=== PATIENT | male | born 1975 | race Asian ===

== ENCOUNTER 2018-11-27 11:04 | Observation (INO) | payer OTHER ==
[2018-11-27 11:48] LABS: PLATELET COUNT 288 10^3/uL (150-400)
--- NOTE | 2018-11-27 12:02 | EDPHY ---
H & P Stated Complaint: black stools x 3 days/syncope and palpitations x 2 last night Time Seen by Provider: 11/27/18 11:58 HPI/ROS: CHIEF COMPLAINT: Black tarry stool, syncope HISTORY OF PRESENT ILLNESS: Patient is a 43-year-old man with no significant history who comes to the emergency department complaining of 3 days black tarry stool and a syncopal episode this morning. He states that when he got to the bathroom 4:00 a.m. He fainted in his found him on the floor. She then helped him up to go back to bed any fainted again. He denies chest pain or palpitations. He denies recent fevers or illness. No nausea vomiting. He does occasionally get heartburn. Severity: Moderate Modifying factors: None REVIEW OF SYSTEMS: Constitutional: denies: chills, fever, recent illness, recent injury EENTM: denies: blurred vision, double vision, nose congestion Respiratory: denies: cough, shortness of breath Cardiac: See HPI denies: chest pain, irregular heart rate, Gastrointestinal/Abdominal: denies: abdominal pain, diarrhea, nausea, vomiting, blood streaked stools Genitourinary: denies: dysuria, frequency, hematuria, pain Musculoskeletal: denies: joint pain, muscle pain Skin: denies: lesions, rash, jaundice, bruising Neurological: denies: headache, numbness, paresthesia, tingling, dizziness, weakness Hematologic/Lymphatic: denies: blood clots, easy bleeding, easy bruising Immunologic/allergic: denies: HIV/AIDS, transplant 10 systems reviewed and negative except as noted EXAM: GENERAL: Well-appearing, well-nourished and in no acute distress. HEAD: Atraumatic, normocephalic. EYES: Pupils equal round and reactive to light, extraocular movements intact, sclera anicteric, conjunctiva are normal. ENT: TMs normal, nares patent, oropharynx clear without exudates. Moist mucous membranes. NECK: Normal range of motion, supple without lymphadenopathy or JVD. LUNGS: Breath sounds clear to auscultation bilaterally and equal. No wheezes rales or rhonchi. HEART: Regular rate and rhythm without murmurs, rubs or gallops. ABDOMEN: Soft, nontender, normoactive bowel sounds. No guarding, no rebound. No masses appreciated. : Rectal scope performed. Black tarry stool sent to the lab. No visible hemorrhoid or fissure. BACK: No CVA tenderness, no spinal tenderness, step-offs or deformities EXTREMITIES: Normal range of motion, no pitting or edema. No clubbing or cyanosis. NEUROLOGICAL: Cranial nerves II through XII grossly intact. Normal speech, normal gait. 5/5 strength, normal movement in all extremities, normal sensation , normal reflexes PSYCH: Normal mood, normal affect. SKIN: Warm, dry, normal turgor, no visible rashes or lesions. Source: Patient Exam Limitations: No limitations - Personal History Current Tetanus Diphtheria and Acellular Pertussis (TDAP): Unsure - Medical/Surgical History Hx Asthma: No Hx Chronic Respiratory Disease: No Hx Diabetes: No Hx Cardiac Disease: No Hx Renal Disease: No Hx Cirrhosis: No Hx Alcoholism: No Hx HIV/AIDS: No Hx Splenectomy or Spleen Trauma: No Other PMH: denies - Family History Significant Family History: No pertinent family hx - Social History Smoking Status: Never smoked Alcohol Use: None Drug Use: None Constitutional: Initial Vital Signs Temperature (C) 36.5 C 11/27/18 11:12 Heart Rate 68 11/27/18 11:12 Respiratory Rate 17 11/27/18 11:12 Blood Pressure 126/68 H 11/27/18 11:12 O2 Sat (%) 98 11/27/18 11:12 O2 Delivery Mode Room Air Allergies/Adverse Reactions: No Known Allergies Allergy (Unverified 11/27/18 11:11) Home Medications: Medication Instructions Recorded Vitamin And Supplements 11/27/18 Medical Decision Making - Diagnostics EKG Interpretation: An EKG obtained and was read and documented in trace view. Please see trace view for full reading and report. Sinus rhythm, no acute ischemic changes ED Course/Re-evaluation: Patient has stable vital signs here in a normal EKG but has been syncopal with black tarry stool. Will hydrate and likely his hematocrit Will dilute. Will start on Protonix and admit. I have paged the hospitalist as well as gastroenterology. 12:[address] Nur who will plan to scope tomorrow. Differential Diagnosis: Partial list of the Differential diagnosis considered include but were not limited to; upper GI bleed, syncope, dehydration and although unlikely based on the history and physical exam, I also considered infection, head injury. - Data Points Laboratory Results: Laboratory Results 11/27/18 11:28 11/27/18 11:28 11/27/18 11/27/18 11/27/18 11:35 11:28 11:28 WBC RBC Hgb POC Hgb 12.9 gm/dL L gm/dL (13.7-17.5) Hct POC Hct 38 % L % (40-51) MCV MCH MCHC RDW Plt Count MPV Neut % (Auto) Lymph % (Auto) Richardson % (Auto) Eos % (Auto) Baso % (Auto) Nucleat RBC Rel Count Absolute Neuts (auto) Absolute Lymphs (auto) Absolute Monos (auto) Absolute Eos (auto) Absolute Basos (auto) Absolute Nucleated RBC Immature Gran % Immature Gran # POC Sodium 138 mEq/L mEq/L (135-145) Sodium 136 mEq/L mEq/L (135-145) POC Potassium 3.8 mEq/L mEq/L (3.3-5.0) Potassium 4.0 mEq/L mEq/L (3.5-5.2) POC Chloride 103 mEq/L mEq/L (97-110) Chloride 103 mEq/L mEq/L (97-110) Carbon Dioxide 23 mEq/l mEq/l (22-31) POC Total CO2 24 mEq/L mEq/L (22-31) Anion Gap 10 mEq/L mEq/L (6-14) POC BUN 27 mg/dL H mg/dL (7-23) BUN 29 mg/dL H mg/dL (7-23) Creatinine 0.8 mg/dL mg/dL (0.7-1.3) POC Creatinine 0.8 mg/dL mg/dL (0.7-1.3) Estimated GFR > 60 Glucose 103 mg/dL H mg/dL (70-100) POC Glucose 106 mg/dL H mg/dL (70-100) Calcium 9.1 mg/dL mg/dL (8.5-10.4) Patient ABO/Rh Pending Antibody Screen Pending 11/27/18 11:28 WBC 9.36 10^3/uL 10^3/uL (3.80-9.50) RBC 4.10 10^6/uL L 10^6/uL (4.40-6.38) Hgb 12.3 g/dL L g/dL (13.7-17.5) POC Hgb Hct 37.7 % L % (40.0-51.0) POC Hct MCV 92.0 fL fL (81.5-99.8) MCH 30.0 pg pg (27.9-34.1) MCHC 32.6 g/dL g/dL (32.4-36.7) RDW 12.7 % % (11.5-15.2) Plt Count 288 10^3/uL 10^3/uL (150-400) MPV 10.8 fL fL (8.7-11.7) Neut % (Auto) 66.8 % % (39.3-74.2) Lymph % (Auto) 28.7 % % (15.0-45.0) Richardson % (Auto) 3.4 % L % (4.5-13.0) Eos % (Auto) 0.4 % L % (0.6-7.6) Baso % (Auto) 0.3 % % (0.3-1.7) Nucleat RBC Rel Count 0.0 % % (0.0-0.2) Absolute Neuts (auto) 6.24 10^3/uL 10^3/uL (1.70-6.50) Absolute Lymphs (auto) 2.69 10^3/uL 10^3/uL (1.00-3.00) Absolute Monos (auto) 0.32 10^3/uL 10^3/uL (0.30-0.80) Absolute Eos (auto) 0.04 10^3/uL 10^3/uL (0.03-0.40) Absolute Basos (auto) 0.03 10^3/uL 10^3/uL (0.02-0.10) Absolute Nucleated RBC 0.00 10^3/uL 10^3/uL (0-0.01) Immature Gran % 0.4 % % (0.0-1.1) Immature Gran # 0.04 10^3/uL 10^3/uL (0.00-0.10) POC Sodium Sodium POC Potassium Potassium POC Chloride Chloride Carbon Dioxide POC Total CO2 Anion Gap POC BUN BUN Creatinine POC Creatinine Estimated GFR Glucose POC Glucose Calcium Patient ABO/Rh Antibody Screen Point of Care Test Results: Chemistry 11/27/18 11:35 POC Sodium 138 mEq/L mEq/L (135-145) POC Potassium 3.8 mEq/L mEq/L (3.3-5.0) POC Chloride 103 mEq/L mEq/L (97-110) POC Total CO2 24 mEq/L mEq/L (22-31) POC BUN 27 mg/dL H mg/dL (7-23) POC Creatinine 0.8 mg/dL mg/dL (0.7-1.3) POC Glucose 106 mg/dL H mg/dL (70-100) ISTAT H&H 11/27/18 11:35 POC Hgb 12.9 gm/dL L gm/dL (13.7-17.5) POC Hct 38 % L % (40-51) Departure - Dep[facility]ure [facility] Clinical Impression: Upper GI bleeding Condition: Fair Referrals: Brianne Bernabe MD [Primary Care Provider] - As per Instructions
[2018-11-27] MEDS ORDERED: NS 1,000 ML IV ONE (12:20)
[2018-11-27] MEDS ORDERED: PANTOPRAZOLE SODIUM 40 MG VIAL ONE (12:30)
[2018-11-27] MEDS ORDERED: ACETAMINOPHEN 325 MG TAB PO PRN (12:34)
[2018-11-27] MEDS ORDERED: ONDANSETRON 4 MG/2 ML VIAL IVP PRN ×2 (12:34→17:16)
[2018-11-27] MEDS ORDERED: ONDANSETRON DISINTEGRATING 4 MG TAB PO PRN (12:34)
[2018-11-27] MEDS: PANTOPRAZOLE SODIUM 40 MG VIAL IVP SCH (12:34)
[2018-11-27 13:03] LABS: INR 0.96 (0.83-1.16); PROTIME(PATIENT) 12.4 SEC (12.0-15.0)
--- NOTE | 2018-11-27 13:33 | SOAPPROG ---
SOAP Progress Note Assessment/Plan: Assessment:Plan: see full dictated consult 43 y/o mle from [place] with melena x 2 days, post hemorrhagic anemia EGD later today Chepe Welch MD 11/27/18 13:32 Objective: Vital Signs Temp Pulse Resp BP Pulse Ox 36.6 C 58 L 16 120/69 97 11/27/18 12:56 11/27/18 13:05 11/27/18 12:56 11/27/18 13:05 11/27/18 13:05 PT 12.4 SEC (12.0-15.0) 11/27/18 11:28 INR 0.96 (0.83-1.16) 11/27/18 11:28 ICD10 Worksheet Patient Problems: Problems Problem Status Onset Upper GI bleeding Acute
--- NOTE | 2018-11-27 14:19 | GCON ---
[f rep st] CONSULTATION DATE OF CONSULTATION: 11/27/2018 REQUESTING PHYSICIAN: Dr. Neri INDICATION FOR CONSULTATION: Upper GI bleed, melena, posthemorrhagic anemia. I have been asked by Dr. Neri to see the patient in consultation for chief complaint of upper GI bleed. He is a very pleasant 43-year-old male who was born in [place], who has no significant past medical history. He was in his usual state of health on Tuesday when he went for a run of 3 miles or more without any significant problems. On Tuesday, he had 1 melenic stool and then this a.m. he had 2-3 more melenic stools and he felt dizzy and had a fainting episode. Because of this, he was brought to the hospital for evaluation. He was noted to have melena and elevated BUN/creatinine ratio and decreased H and H consistent with an upper GI bleed. He has been hemodynamically stable since he is in the hospital. He has received over a L of fluid IV. He is currently sitting in his bed comfortably without any complaints. He says over the last few weeks he has had a few episodes of intermittent nausea and epigastric discomfort. A number of weeks ago he did get up in the morning and had to vomit twice, bilious material without any blood. He has not had any melena prior to today. There is no family history of peptic ulcer disease, but there is a history concerning for possible genetic syndrome with his mother having uterine cancer at a young age, colon polyps and his maternal aunt having breast cancer. The patient did not take any aspirin or nonsteroidal anti-inflammatory drugs. He only takes some supplements and vitamins [id number]. He has not had any hematemesis. He does not describe any dysphagia, odynophagia, or early satiety. Up until today, his appetite was good and there has been no weight loss. He is now admitted for a presumed upper GI bleed. I am called to help evaluate and treat in that regard. PAST MEDICAL HISTORY: None. PAST SURGICAL HISTORY: None. MEDICATIONS: At home, only vitamins and supplements. ALLERGIES: No known drug allergies. SOCIAL HISTORY: Does not smoke. He drinks alcohol infrequently every couple weeks with friends. He may have a beer or some wine. He was born in [facility]. FAMILY HISTORY: Mother with uterine cancer at age under 50. Mother with colon polyps. Aunt with breast cancer. REVIEW OF SYSTEMS: A complete review of systems was performed and negative other than noted in the HPI. Other pertinent negatives include no chest pain, shortness of breath, palpitations, diaphoresis. PHYSICAL EXAM: GENERAL: Well-developed, well-nourished man sitting in his bed. No acute distress. VITAL SIGNS: Blood pressure 132/72, pulse 62, respirations 16. He is 98% on room air. Temperature 36.6. HEENT: Eyes anicteric. CELESTINO, EOMI. Mouth: No lesions. Moist membranes. NECK: Supple. Full range of motion. No JVD. BACK: No spine tenderness. No CVA tenderness. LUNGS: Clear. CARDIAC: S1, S2. Regular rate and rhythm. No murmurs, rubs , gallops appreciated. ABDOMEN: Bowel sounds are normal pitch. Soft and nontender. No hepatosplenomegaly. EXTREMITIES: No cyanosis, clubbing, or edema. NEUROLOGIC: Cranial nerves intact. Nonfocal. Alert and oriented x3. SKIN: No stigmata of advanced liver disease. No rashes. LABORATORY DATA: Sodium 138, potassium 3.8, chloride 103, bicarb 24, BUN 29, creatinine 0.8, glucose 106, calcium 9.1. WBC 9.36, hemoglobin 12.3, hematocrit 37.7, platelet count 288. A subsequent hemoglobin done just a couple minutes later showed 12.9. ProTime 12.4, INR 0.96, PTT 26.5. ASSESSMENT: 1. Melena. 2. Posthemorrhagic anemia. 3. Near syncope related to upper gastrointestinal bleed. 4. Family history concerning for genetic syndrome such as HNPCC. RECOMMENDATIONS: 1. Continue Protonix IV q.6. 2. Serial H and H. 3. Plan for EGD later today with anesthesia. 4. Will need to follow up H pylori status. If negative on biopsy, will recommend another test to evaluate as he was born in [place]. I considered the H pylori acquired in [place] as a carcinogen and would like to have full eradication documented. 5. Recommend he follow up with our [facility] as an outpatient given his family history to make sure there are no genetic syndromes that we need to worry about. 6. Further recommendations to follow results of EGD and clinical course. Thank you for allowing me to participate in this patient's healthcare. Do not hesitate to call me with any questions. Sincerely, /[id number]/MODL MTDD
[2018-11-27] MEDS ORDERED: LR 1,000 ML IV ONE (14:44)
--- NOTE | 2018-11-27 15:16 | PDGENHP ---
History and Physical - Chief Complaint Black stool, syncope - History of Present Illness Dion Chandra is a 43 yo M with no significant PMHx who presents to [facility] black stools and syncope. His is at the bedside who has helped with hx taking. They report that patient started having black bowel movement yesterday morning. He denies any hx of melena. He reports no associated abdominal or epigastric pain but does endorse nausea. He states that a few weeks ago he had a fairly severe episode of heartburn with nausea and vomiting. He denies any hemoptysis at that time. Heartburn resolved at that time and has not recurred since. Melena recurred this morning with two episodes. He denies hematochezia. He was going to bathroom at 4AM and reports feeling lightheaded and fainted. His found him on the floor, helped him back up and reports that he fainted again. He denies any preceding symptoms other than LH including chest pain, palpitations, SOB, vision changes. He denies any significant NSAID use. History Information - Allergies/Home Medication List Allergies/Adverse Reactions: No Known Allergies Allergy (Verified 11/27/18 14:17) Home Medications: Herbals/Supplements -Info Only 1 ea PO DAILY 11/27/18 [Last Taken Unknown] Vitamin B Complex [Vitamin B Complex (OTC)] 1 each PO DAILY 11/27/18 [Last Taken Unknown] I have personally reviewed and updated: family history, medical history, social history, surgical history - Past Medical History no pertinent PMH - Surgical History Reports: no pertinent surgical hx - Family History Positive for: non-pertinent - Social History Smoking Status: Never smoked Alcohol Use: None Drug Use: None Review of Systems Review of Systems: ROS: 10pt was reviewed & negative except for what was stated in HPI & below Physical Exam Physical Exam: Temp Pulse Resp BP Pulse Ox 36.8 C 51 L 16 122/73 H 98 11/27/18 14:29 11/27/18 14:29 11/27/18 14:29 11/27/18 14:29 11/27/18 14:29 Constitutional: no apparent distress Eyes: PERRL Ears, Nose, Mouth, Throat: moist mucous membranes Cardiovascular: regular rate and rhythym Respiratory: no respiratory distress Gastrointestinal: soft, non-tender abdomen Skin: warm Musculoskeletal: full muscle strength Neurologic: AAOx3 Psychiatric: interacting appropriately Lymph, Heme, Immunologic: No ecchymoses Lab Data & Imaging Review 11/27/18 11:28 11/27/18 11:28 WBC 9.36 10^3/uL (3.80-9.50) 11/27/18 11:28 RBC 4.10 10^6/uL (4.40-6.38) L 11/27/18 11:28 Hgb 12.3 g/dL (13.7-17.5) L 11/27/18 11:28 POC Hgb 12.9 gm/dL (13.7-17.5) L 11/27/18 11:35 Hct 37.7 % (40.0-51.0) L 11/27/18 11:28 POC Hct 38 % (40-51) L 11/27/18 11:35 MCV 92.0 fL (81.5-99.8) 11/27/18 11:28 MCH 30.0 pg (27.9-34.1) 11/27/18 11:28 MCHC 32.6 g/dL (32.4-36.7) 11/27/18 11:28 RDW 12.7 % (11.5-15.2) 11/27/18 11:28 Plt Count 288 10^3/uL (150-400) 11/27/18 11:28 MPV 10.8 fL (8.7-11.7) 11/27/18 11:28 Neut % (Auto) 66.8 % (39.3-74.2) 11/27/18 11:28 Lymph % (Auto) 28.7 % (15.0-45.0) 11/27/18 11:28 [place] % (Auto) 3.4 % (4.5-13.0) L 11/27/18 11:28 Eos % (Auto) 0.4 % (0.6-7.6) L 11/27/18 11:28 Baso % (Auto) 0.3 % (0.3-1.7) 11/27/18 11:28 Nucleat RBC Rel Count 0.0 % (0.0-0.2) 11/27/18 11:28 Absolute Neuts (auto) 6.24 10^3/uL (1.70-6.50) 11/27/18 11:28 Absolute Lymphs (auto) 2.69 10^3/uL (1.00-3.00) 11/27/18 11:28 Absolute Monos (auto) 0.32 10^3/uL (0.30-0.80) 11/27/18 11:28 Absolute Eos (auto) 0.04 10^3/uL (0.03-0.40) 11/27/18 11:28 Absolute Basos (auto) 0.03 10^3/uL (0.02-0.10) 11/27/18 11:28 Absolute Nucleated RBC 0.00 10^3/uL (0-0.01) 11/27/18 11:28 Immature Gran % 0.4 % (0.0-1.1) 11/27/18 11:28 Immature Gran # 0.04 10^3/uL (0.00-0.10) 11/27/18 11:28 PT 12.4 SEC (12.0-15.0) 11/27/18 11:28 INR 0.96 (0.83-1.16) 11/27/18 11:28 APTT 26.5 SEC (23.0-38.0) 11/27/18 11:28 POC Sodium 138 mEq/L (135-145) 11/27/18 11:35 Sodium 136 mEq/L (135-145) 11/27/18 11:28 POC Potassium 3.8 mEq/L (3.3-5.0) 11/27/18 11:35 Potassium 4.0 mEq/L (3.5-5.2) 11/27/18 11:28 POC Chloride 103 mEq/L (97-110) 11/27/18 11:35 Chloride 103 mEq/L (97-110) 11/27/18 11:28 Carbon Dioxide 23 mEq/l (22-31) 11/27/18 11:28 POC Total CO2 24 mEq/L (22-31) 11/27/18 11:35 Anion Gap 10 mEq/L (6-14) 11/27/18 11:28 POC BUN 27 mg/dL (7-23) H 11/27/18 11:35 BUN 29 mg/dL (7-23) H 11/27/18 11:28 Creatinine 0.8 mg/dL (0.7-1.3) 11/27/18 11:28 POC Creatinine 0.8 mg/dL (0.7-1.3) 11/27/18 11:35 Estimated GFR > 60 11/27/18 11:28 Glucose 103 mg/dL (70-100) H 11/27/18 11:28 POC Glucose 106 mg/dL (70-100) H 11/27/18 11:35 Calcium 9.1 mg/dL (8.5-10.4) 11/27/18 11:28 Total Bilirubin 0.3 mg/dL (0.1-1.4) 11/27/18 11:28 Conjugated Bilirubin 0.0 mg/dL (0.0-0.5) 11/27/18 11:28 Unconjugated Bilirubin 0.3 mg/dL (0.0-1.1) 11/27/18 11:28 AST 20 IU/L (17-59) 11/27/18 11:28 ALT 17 IU/L (21-72) L 11/27/18 11:28 Alkaline Phosphatase 58 IU/L (38-126) 11/27/18 11:28 Total Protein 6.7 g/dL (6.3-8.2) 11/27/18 11:28 Albumin 4.0 g/dL (3.5-5.0) 11/27/18 11:28 Patient ABO/Rh O POSITIVE 11/27/18 11:28 Antibody Screen NEGATIVE 11/27/18 11:28 Assessment & Plan Assessment: Upper GI bleeding (Acute) - Reports melena for 2 days - Hgb 12.3 on admission, unknown baseline - Started on IV PPI in ED, will continue - GI consulted, will perform EGD this afternoon, f/u results - Will continue to monitor H/H Syncope - In setting of UGIB and anemia as above - Will monitor on telemetry to r/o arrhythmia Anemia - In setting of UGIB as above - Unknown baseline - Continue to monitor, transfuse for H/H <720 FEN: NPO for EGD DVT PPx: SCDs, holding in setting of UGIB Code: FULL Dispo: Admit to Observation
--- NOTE | 2018-11-27 15:34 | POSTANESTH ---
Post Anesthetic Evaluation Cardiovascular Status: Normal, Stable Respiratory Status: Normal, Stable Level of Consciousness/Mental Status: Can Participate in Eval, Mildly Sleepy, Arousable Pain Control: Adequate, Prn Tx Ordered Nausea/Vomiting Control: Adequate, Prn Tx Ordered Complications Possibly Related to Anesthesia: None Noted
--- NOTE | 2018-11-27 15:43 | PDANEPAE ---
ANE History of Present Illness 43 yo male with GI bleed x2 days. ANE Past Medical History - Cardiovascular History Hx Hypertension: No Hx Arrhythmias: No Hx Chest Pain: No Hx Coronary Artery / Peripheral Vascular Disease: No Hx CHF / Valvular Disease: No - Pulmonary History Hx COPD: No Hx Asthma/Reactive Airway Disease: No Hx Recent Upper Respiratory Infection: No Hx Oxygen in Use at Home: No Hx Sleep Apnea: No Sleep Apnea Screening Result - Last Documented: Negative - Endocrine History Hx Diabetes: No Hypothyroid: No Hyperthyroid: No Obesity: no - Renal History Hx Renal Disorders: No - Liver History Hx Hepatic Disorders: No - GI History GERD: mild (intermittent GERD, no regular meds for this) ANE Review of Systems Review of Systems: - Systems EENMT: Reports: no symptoms Cardiac: Reports: no symptoms Respiratory: Reports: no symptoms Gastrointestinal: Reports: black stools ANE Patient History - Allergies Allergies/Adverse Reactions: No Known Allergies Allergy (Verified 11/27/18 14:17) - Home Medications Home Medications: Herbals/Supplements -Info Only 1 ea PO DAILY 11/27/18 [Last Taken Unknown] Vitamin B Complex [Vitamin B Complex (OTC)] 1 each PO DAILY 11/27/18 [Last Taken Unknown] - NPO status NPO Since - Liquids (Date): 11/27/18 NPO Since - Liquids (Time): 13:30 NPO Since - Solids (Date): 11/27/18 NPO Since - Solids (Time): 07:30 - Anes Hx Anes Hx: no prior problems (anesthesia for wisdom teeth work, no other anesthetics) - Smoking Hx Smoking Status: Never smoked - Alcohol Use Alcohol Use: Rarely - Family Anes Hx Family Anes Hx: none ANE Labs/Vital Signs - Labs Result Diagrams: 11/27/18 11:28 11/27/18 11:28 - Vital Signs Blood Pressure: 122/73 Heart Rate: 51 Respiratory Rate: 16 O2 Sat (%): 98 Height: 174 cm Weight: 71.668 kg ANE Physical Exam - Airway Neck exam: FROM Mallampati Score: Class 2 Mouth exam: normal dental/mouth exam - Pulmonary Pulmonary: clear to auscultation - Cardiovascular Cardiovascular: regular rate and rhythym - ASA Status ASA Status: I ANE Anesthesia Plan Anesthesia Plan: GA with mask Total IV Anesthesia: Yes
[2018-11-27] MEDS ORDERED: PROPOFOL/EMULSION 500 MG/50 ML BOTTLE IV ONE (16:28)
[2018-11-27] MEDS ORDERED: LIDOCAINE 2% 2 ML INJ ONE (16:28)
[2018-11-27] MEDS ORDERED: ACETAMINOPHEN 500 MG TAB PO PRN (17:16)
[2018-11-27] MEDS ORDERED: NALOXONE HCL 0.4 MG/ML INJ IVP PRN (17:16)
[2018-11-27] MEDS ORDERED: LR 500 ML IV PRN (17:16)
--- NOTE | 2018-11-27 17:26 | GIREPORT ---
[facility] - Endoscopy Department Patient Name: Dion Chandra Procedure Date: 11/27/2018 4:31 PM Patient Type: Inpatient Attending MD/ ER Physician: Chepe Welch MD Procedure: Upper GI endoscopy Indications: Acute post hemorrhagic anemia, Melena Providers: Chepe Welch MD Referring MD: Brianne Bernabe Medicines: Propofol per Anesthesia = IV general with spont resps Complications: No immediate complications. Estimated blood loss: None. Description of Procedure: After obtaining informed consent, the endoscope was passed under direct vision. Throughout the procedure, the patient's blood pressure, pulse, and oxygen saturations were monitored continuously. The Endoscope was intro duced through the mouth, and advanced to the third part of duodenum. The uppe r GI endoscopy was accomplished without difficulty. The patient tolerated th e procedure well. Findings: The examined esophagus was normal. One non-bleeding cratered gastric ulcer with no stigmata of bleeding wa s found at the incisura. The lesion was 6 mm in largest dimension. Biopsi es were taken with a cold forceps for histology. Estimated blood loss was minimal. Diffuse mildly erythematous mucosa without bleeding was found in the ga stric antrum. Biopsies were taken with a cold forceps for histology. Estimate d blood loss was minimal. The examined duodenum was normal. The exam was otherwise without abnormality. Estimated Blood Loss: Estimated blood loss was minimal. Post Op Diagnosis: - Normal esophagus. - Non-bleeding gastric ulcer with no stigmata of bleeding. Biopsied. - Erythematous mucosa in the antrum. Biopsied. - Normal examined duodenum. - The examination was otherwise normal. Recommendation: - Await pathology results. If no h pylori noted will need to check seru m ab or stool Ag (stool ag needs to be off PPI for one month) - My office will call with the pathology result with 5-7 days. If you h ave not heard from my office by 12-14, do not assume the pathology is asnket l, please call [phone] to get the pathology results. - Use Protonix (pantoprazole) 40 mg PO BID for 1 month. Then daily for total of 8 weeks. - Repeat upper endoscopy in 3 months to check healing. - Advance diet as tolerated. - [facility] patient to [facility] for [facility] care. Probably tomorrow morning. - Thank you for allowing me to help in your patient's care. Do not hesi saleem to call with any questions. Attending Participation: I personally performed the entire procedure. Rebekah Bonilla M.D Chepe Welch MD 11/27/2018 5:25:59 PM This report has been signed electronicallyMatthew MD Rebekah Number of Addenda: 0 Note Initiated On: 11/27/2018 4:31 PM [email or web address]
[2018-11-28] MEDS: PANTOPRAZOLE SODIUM 40 MG VIAL IVP SCH ×2 (01:44→06:32)
[2018-11-28 05:17] LABS: PLATELET COUNT 220 10^3/uL (150-400)
--- NOTE | 2018-11-28 08:25 | HOSPPROG ---
Hospitalist Progress Note Assessment/Plan: Dion Chandra is a 43 yo M with no significant PMHx who presents to [facility] black stools and syncope. First encounter, chart reviewed. *Upper GI bleeding (Acute) -s/p EGD showing non bleeding gastric ulcer -hgb trending down -recommendation is PPI 40 mg bid x 1 month, then daily x 4 weeks to equal 8 weeks total -needs to f/u with GI (will need a f/u EGD in 3 months) *Syncope - In setting of UGIB and anemia as above - evaluated three telemetry strips in the chart, sinus bradycardia, sinus rhythm -suspected he vasovagal *Anemia - In setting of UGIB as above -to start iron once stool is brown *plan: dc home w close f/u with Dr Welch Subjective: Dion has no complaints. Objective: Vital Signs Temp Pulse Resp BP Pulse Ox 36.6 C 52 L 16 111/61 98 11/28/18 07:35 11/28/18 07:35 11/28/18 07:35 11/28/18 07:35 11/28/18 07:35 Laboratory Results 11/28/18 04:32 11/27/18 11/28/18 11/29/18 05:59 05:59 05:59 Intake Total 950 Output Total 0 Balance 950 PT 12.4 SEC (12.0-15.0) 11/27/18 11:28 INR 0.96 (0.83-1.16) 11/27/18 11:28 - Physical Exam Constitutional: no apparent distress, not in pain Eyes: PERRL Ears, Nose, Mouth, Throat: hearing normal Cardiovascular: regular rate and rhythym, bradycardia Respiratory: no respiratory distress Skin: warm Musculoskeletal: full muscle strength Neurologic: AAOx3 Psychiatric: interacting appropriately ICD10 Worksheet Patient Problems: Problems Problem Status Onset Upper GI bleeding Acute
--- NOTE | 2018-11-28 11:10 | SOAPPROG ---
SOAP Progress Note Assessment/Plan: Assessment:Plan: see full dictated consult 43 y/o mle from [place] with melena x 2 days, post hemorrhagic anemia EGD later today Chepe Welch MD 11/27/18 13:32 11/28/18 11:06 1) UGI bleed from - low risk rebleeding from EGD, PPI BID for 4 weeks then daily for additional 4 weeks = 8 week total, f/u EGD in 3 months 2) Anemia - I usually start iron once stool is brown. FeSo4 325 mg one per day for one month along with MVI, hb down to 10.8 but I feel this is hydration/ equilibration 3) path - pending, my office will call him once we have results 4) dispo - home today, spoke with hospitalist Subjective: cc- UGI bleed from feeling well, no pain, small amount of residual melena no continued over blood loss Ok to go home from GI viewpoint Objective: Vital Signs Temp Pulse Resp BP Pulse Ox 36.6 C 64 16 104/63 98 11/28/18 07:35 11/28/18 10:26 11/28/18 07:35 11/28/18 10:26 11/28/18 07:35 Laboratory Results 11/28/18 04:32 11/27/18 11/28/18 11/29/18 05:59 05:59 05:59 Intake Total 950 300 Output Total 0 Balance 950 300 PT 12.4 SEC (12.0-15.0) 11/27/18 11:28 INR 0.96 (0.83-1.16) 11/27/18 11:28 CTA S1S2 +BS, soft nt, a+ox3 Laboratory Tests 11/27/18 11/27/18 11/27/18 11:28 11:28 11:35 Hgb 12.3 L POC Hgb 12.9 L Hct 37.7 L POC Hct 38 L POC BUN 27 H BUN 29 H Creatinine 0.8 POC Creatinine 0.8 11/28/18 04:32 Hgb 10.8 L POC Hgb Hct 32.3 L POC Hct POC BUN BUN Creatinine POC Creatinine ICD10 Worksheet Patient Problems: Problems Problem Status Onset Upper GI bleeding Acute
[2018-11-28 11:59] VITALS: BP 107/68
--- NOTE | 2018-11-28 12:27 | GDS ---
[f rep st] DISCHARGE SUMMARY DISCHARGE DIAGNOSES: 1. Acute upper GI bleed. 2. Syncopal event. 3. Anemia. CONSULTATION: Dr. Chepe Welch. Briefly, the patient is a very nice 43-year-old gentleman with no significant past medical history. He presented to the emergency room with black tarry stools as well as syncope. He was admitted and seen and evaluated by Dr. Welch. He had an upper GI endoscopy, which showed a nonbleeding gastric ulcer with no stigmata of bleeding that was biopsied. He has an erythematous mucosa in the antrum, which was biopsied. There rest of the exam was normal. He will be on a PPI twice daily for a month then daily for a total of 8 weeks. He will follow up with Dr. Welch for pending results. In addition, he will need a repeat upper endoscopy to check for healing. HOSPITAL COURSE BY PROBLEM: 1. Upper GI bleed. The EGD did show a nonbleeding gastric ulcer. His hemoglobin did trend down. He will follow up with Dr. Welch and get a repeat EGD in 3 months. 2. Syncope. This was in the setting of an upper GI bleed. I suspect he also had a vasovagal event. He said he felt the heart racing and felt lightheaded and a little bit nauseated. Recommended for him to sit down, put a cool cloth on his neck. If this should reoccur, to exhale. I reviewed the 3 telemetry strips in the chart which showed sinus bradycardia and sinus rhythm. 3. Anemia. This is in the setting of upper GI bleed. He will start oral iron once his stool is brown. DISCHARGE CONDITION: Stable. Blood pressure is 111/61, heart rate of 52, respiratory rate of 16, O2 sats on room air 98%, temperature 36.6 Celsius. MEDICATIONS AT DISCHARGE: Please see the EMR. DISCHARGE INSTRUCTIONS: 1. To take the PPI twice daily x4 weeks and daily for 4 weeks. 2. To start oral iron once his stool is brown. 3. Follow up with Dr. Welch in regard to his pathology. /[id number]/MODL MTDD
== END 2018-11-28 12:27 | disposition home or self-care (01) ==
LOC: F3E 13:39
PROVIDERS: ADMIT Internal Medicine; ATTEND Internal Medicine
PROC: 0DB68ZX Excision of Stomach, Via Natural or Artificial Opening Endoscopic, Diagnostic (ICD-10-PCS; principal; 2018-11-27 14:45)
DX: K29.50 Unspecified chronic gastritis without bleeding (principal); K25.9 Gastric ulcer, unspecified as acute or chronic, without hemorrhage or perforation; D62 Acute posthemorrhagic anemia; R55 Syncope and collapse
CPT/HCPCS: 43239; 96361; 96374; 96376; 99285; G0378; 82435-PO; 82565-PO; 82947-PO; 84132-PO; 84295-PO; 84520-PO; 85014-ER; J2704